=== PATIENT | female | born 1985 | race Caucasian/White ===

== ENCOUNTER 2018-03-27 21:00 | Inpatient (IN) | payer OTHER ==
[2018-03-28] MEDS ORDERED: Zolpidem Tartrate 5 MG TAB PO PRN ×2 (01:30→21:44)
[2018-03-28] MEDS ORDERED: Butorphanol Tartrate 1 MG/ML VIAL SLOW IVP PRN (01:30)
[2018-03-28] MEDS ORDERED: Docusate 100 MG CAP PO PRN (01:30)
[2018-03-28] MEDS ORDERED: Diphenoxylate HCl/Atropine Tablet PO PRN ×2 (01:30)
[2018-03-28] MEDS ORDERED: Misoprostol 200 MCG TAB PR PRN (01:30)
[2018-03-28] MEDS ORDERED: Lidocaine 1% (PF) 30 ML VIAL SC PRN (01:30)
[2018-03-28] MEDS ORDERED: HYDROcodone/Acetaminophen 5/325 mg Tablet PO PRN ×2 (01:30)
[2018-03-28] MEDS ORDERED: NS w/ Oxytocin 10 units 500 ML IV SCH (01:30)
[2018-03-28] MEDS ORDERED: Ibuprofen 800 MG TAB PO PRN (01:30)
[2018-03-28] MEDS ORDERED: Promethazine HCl 25 MG/ML VIAL IM PRN ×2 (01:30→11:21)
[2018-03-28] MEDS ORDERED: Misoprostol 100 MCG TAB VAG SCH (01:30)
[2018-03-28] MEDS ORDERED: Acetaminophen 500 MG TAB PO PRN (01:30)
[2018-03-28] MEDS ORDERED: NS / Oxytocin 40 units/1000ml 1,000 ML IV PRN (01:30)
[2018-03-28 02:08] VITALS: BMI 32.5
[2018-03-28] MEDS: Lactated Ringer's 1,000 ML IV SCH ×3 (02:20→15:47)
[2018-03-28] MEDS: Misoprostol 100 MCG TAB ONE ×2 (02:30→06:00)
[2018-03-28 02:48] LABS: Hemoglobin 13.2 g/dL (12.0-16.0); Mean Corpuscular Hemoglobin 31.4 pg (27.0-31.0); Mean Corpuscular Volume 89.6 fL (78.0-98.0); Mean Platelet Volume 8.3 fL (7.4-10.4); Platelet Count 170 thou/uL (130-400); RBC Distribution Width 12.7 % (11.5-14.5); Red Blood Cell (RBC) Count 4.22 mill/uL (4.20-5.40); White Blood Cell (WBC) Count 9.9 thou/uL (4.8-10.8)
[2018-03-28 03:27] LABS: Hep B Surf Ag Non-Reactive S/CO (NonReactive)
[2018-03-28 04:51] LABS: Syphilis Antibody Nonreactive (Nonreactive); Syphilis Antibody Index 0.04 S/CO (<1.00 Non-Reactive)
[2018-03-28] MEDS ORDERED: DISCONTINUE ALL PREVIOUS NARCOTICS FS SCH (10:30)
[2018-03-28] MEDS ORDERED: Bupivacaine 0.25% HCL 30 ML VIAL ONE (11:11)
[2018-03-28] MEDS ORDERED: Naloxone HCl 0.4 mg/ml Vial IVP PRN ×2 (11:21)
[2018-03-28] MEDS ORDERED: Ondansetron HCl/PF 4 MG/2 ML Vial IVP PRN ×2 (11:21→21:44)
[2018-03-28] MEDS ORDERED: Acetaminophen 325 MG TAB PO PRN (11:21)
[2018-03-28] MEDS ORDERED: Eucerin (Mineral Oil/Petrolatum,White) 30 gm Jar TOP PRN (11:21)
[2018-03-28] MEDS ORDERED: diphenhydrAMINE 50 MG/ML VIAL IVP PRN (11:21)
[2018-03-28] MEDS ORDERED: ePHEDrine/0.9% NaCl/PF SYRINGE 50 mg/10 ml SLOW IVP PRN (11:21)
[2018-03-28] MEDS ORDERED: Lactated Ringer's 500 ML IV PRN (11:21)
[2018-03-28] MEDS ORDERED: fentaNYL Citrate/PF 400 MCG, Bupivacaine 0.5% 20 ML in Sodium Chloride 0.9% 72 ML EPIDURAL SCH (11:30)
[2018-03-28] MEDS: Bupivacaine 0.5% 20 ML, fentaNYL Citrate/PF 400 MCG in Sodium Chloride 0.9% 72 ML EPIDURAL SCH ×2 (11:30→17:58)
[2018-03-28] MEDS ORDERED: Communication Order-Pharmacy FS SCH (11:30)
[2018-03-28] MEDS: Ondansetron HCl/PF 4 MG/2 ML Vial IVP PRN ×2 (11:40→17:06)
[2018-03-28] MEDS ORDERED: Acetaminophen/Codeine 30-300mg Tablet PO PRN ×2 (21:44)
[2018-03-28] MEDS ORDERED: Preparation H Ointment 28 GM TUBE PR PRN (21:44)
[2018-03-28] MEDS ORDERED: Lanolin Ointment 7 GM TUBE TOP PRN (21:44)
[2018-03-28] MEDS ORDERED: diphenhydrAMINE 25 MG CAP PO PRN (21:44)
[2018-03-28] MEDS ORDERED: Adacel (T-DAP) 0.5 ML VIAL IM ONE (21:44)
[2018-03-28] MEDS ORDERED: Benzocaine/Menthol 20-0.5% 60 ML CAN TOP PRN (21:44)
[2018-03-28] MEDS ORDERED: Bisacodyl 10 MG SUPP PR PRN (21:44)
[2018-03-28] MEDS ORDERED: Milk Of Magnesia 30 ML UDCUP PO PRN (21:44)
[2018-03-28] MEDS ORDERED: NS / Oxytocin 40 units/1000ml 1,000 ML IV SCH (21:45)
[2018-03-28] MEDS: Ibuprofen 800 MG TAB PO SCH (22:31)
[2018-03-29] MEDS: Ibuprofen 800 MG TAB PO SCH ×3 (06:06→22:01)
[2018-03-29] MEDS: Docusate Calcium (SURFAK) 240 MG CAP PO SCH ×2 (09:27→22:01)
[2018-03-29] MEDS: Prenatal Vitamin 1 TAB PO SCH (09:27)
[2018-03-29] MEDS: Ferrous Sulfate 325 MG TAB PO SCH ×2 (09:28→18:50)
[2018-03-30] MEDS ORDERED: Levothyroxine Sodium 25 MCG TAB PO SCH (06:00)
[2018-03-30] MEDS: Ibuprofen 800 MG TAB PO SCH ×2 (06:13→13:55)
[2018-03-30] MEDS: Docusate Calcium (SURFAK) 240 MG CAP PO SCH (09:14)
[2018-03-30] MEDS: Prenatal Vitamin 1 TAB PO SCH (09:14)
[2018-03-30] MEDS: Ferrous Sulfate 325 MG TAB PO SCH ×2 (09:15→13:22)
[2018-03-30 09:42] VITALS: BP 114/59; TEMP 98.5
== END 2018-03-30 14:45 | disposition home or self-care (01) | DRG 774 ==
LOC: L&D 03-28 01:12 → 3SW 03-28 23:51
PROVIDERS: ADMIT Obstetrics & Gynecology; ATTEND Obstetrics & Gynecology
PROC: 10E0XZZ Delivery of Products of Conception, External Approach (ICD-10-PCS; principal; 2018-03-28)
PROC: 0W8NXZZ Division of Female Perineum, External Approach (ICD-10-PCS; 2018-03-28)
PROC: 3E033VJ Introduction of Other Hormone into Peripheral Vein, Percutaneous Approach (ICD-10-PCS; 2018-03-28)
PROC: 10907ZC Drainage of Amniotic Fluid, Therapeutic from Products of Conception, Via Natural or Artificial Opening (ICD-10-PCS; 2018-03-28)
DX: O77.0 Labor and delivery complicated by meconium in amniotic fluid (principal); O99.42 Diseases of the circulatory system complicating childbirth; Z3A.39 39 weeks gestation of pregnancy; Z37.0 Single live birth
CPT/HCPCS: 51702; 85027; 86780; 86850; 86900; 86901; 87340; J2001; J2405; J3010; J3490; J7050; S0020

== ENCOUNTER 2019-11-05 19:15 | Inpatient (IN) | payer OTHER ==
[~2019-11-05 19:15] MED LIST: Bupivacaine 0.25% HCL 30 ML VIAL ONE
[2019-11-05] MEDS ORDERED: Promethazine HCl 25 MG/ML VIAL IM PRN (20:47)
[2019-11-05] MEDS ORDERED: NS w/ Oxytocin 10 units 500 ML IV SCH (20:47)
[2019-11-05] MEDS ORDERED: Butorphanol Tartrate 1 MG/ML VIAL SLOW IVP PRN (20:47)
[2019-11-05] MEDS ORDERED: Acetaminophen 500 MG TAB PO PRN (20:47)
[2019-11-05] MEDS ORDERED: hydrALAZINE 20 MG/ML VIAL SLOW IVP PRN (20:47)
[2019-11-05] MEDS ORDERED: Ondansetron PF 4 MG/2 ML Vial IVP PRN (20:47)
[2019-11-05] MEDS ORDERED: Diphenoxylate HCl/Atropine Tablet PO PRN ×2 (20:47)
[2019-11-05] MEDS ORDERED: HYDROcodone/Acetaminophen 5/325 mg Tablet PO PRN (20:47)
[2019-11-05] MEDS ORDERED: NS / Oxytocin 40 units/1000ml 1,000 ML IV PRN (20:47)
[2019-11-05] MEDS ORDERED: Carboprost 250 MCG/ML AMP IM PRN (20:47)
[2019-11-05] MEDS ORDERED: Lidocaine 1% (PF) 30 ML VIAL SC PRN (20:47)
[2019-11-05] MEDS ORDERED: Ibuprofen 800 MG TAB PO PRN (20:47)
[2019-11-05] MEDS ORDERED: Misoprostol 200 MCG TAB PR PRN (20:47)
[2019-11-05 21:00] LABS: Hemoglobin 13.4 g/dL (12.0-16.0); Mean Corpuscular HGB CONC 34.4 g/dL (32.0-36.0); Mean Corpuscular Hemoglobin 31.2 pg (27.0-31.0); Mean Corpuscular Volume 90.7 fL (78.0-98.0); Mean Platelet Volume 8.1 fL (7.4-10.4); Platelet Count 175 thou/uL (130-400); RBC Distribution Width 12.6 % (11.5-14.5); Red Blood Cell (RBC) Count 4.31 mill/uL (4.20-5.40); White Blood Cell (WBC) Count 10.4 thou/uL (4.8-10.8)
[2019-11-05] MEDS ORDERED: Penicillin G Potassium 5 MILL.UNITS in Sodium Chloride 0.9% 100 ML IVPB SCH (21:00)
[2019-11-05 21:39] LABS: Syphilis Antibody Nonreactive (Nonreactive); Syphilis Antibody Index 0.04 S/CO (<1.00 Non-Reactive)
[2019-11-05 21:43] VITALS: BMI 34.9
[2019-11-05] MEDS: Misoprostol 100 MCG TAB VAG SCH (21:55)
[2019-11-05] MEDS: Lactated Ringer's 1,000 ML IV SCH (21:59)
[2019-11-05 22:28] LABS: Hep B Surf Ag Non-Reactive S/CO (NonReactive)
[2019-11-06] MEDS: Misoprostol 100 MCG TAB VAG SCH (01:44)
[2019-11-06] MEDS: Penicillin G 2.5 MILL.units 2.5 MILL.UNITS in Premix Bag 1 BAG IVPB SCH ×3 (03:59→12:01)
[2019-11-06] MEDS ORDERED: Fentanyl 4 mcg/Bup 0.1% Cadd 100 ML ONE ×2 (06:30→12:53)
[2019-11-06] MEDS: Lactated Ringer's 1,000 ML IV SCH ×2 (06:55→12:02)
[2019-11-06] MEDS ORDERED: Lactated Ringer's 500 ML IV PRN (07:23)
[2019-11-06] MEDS ORDERED: Ondansetron PF 4 MG/2 ML Vial IVP PRN (07:23)
[2019-11-06] MEDS ORDERED: Naloxone HCl 0.4 mg/ml Vial IVP PRN ×2 (07:23)
[2019-11-06] MEDS ORDERED: diphenhydrAMINE 50 MG/ML VIAL IVP PRN (07:23)
[2019-11-06] MEDS ORDERED: Promethazine HCl 25 MG/ML VIAL IM PRN (07:23)
[2019-11-06] MEDS ORDERED: Acetaminophen 325 MG TAB PO PRN (07:23)
[2019-11-06] MEDS ORDERED: EPHEDRINE 25 MG/5 ML SYRINGE SLOW IVP PRN (07:23)
[2019-11-06] MEDS ORDERED: Communication Order-Pharmacy FS SCH (07:30)
[2019-11-06] MEDS ORDERED: Fentanyl 4 mcg/Bupivacaine 0.1% Cassette 100 ML EPIDURAL SCH (07:30)
[2019-11-06] MEDS ORDERED: Lidocaine 1.5%/Epinephrine 1:200,000 5 ML AMPUL IJ ONE (13:09)
[2019-11-06] MEDS ORDERED: Lanolin Ointment 7 GM TUBE TOP PRN (15:45)
[2019-11-06] MEDS ORDERED: hydrALAZINE 20 MG/ML VIAL SLOW IVP PRN (15:45)
[2019-11-06] MEDS ORDERED: Milk Of Magnesia 30 ML UDCUP PO PRN (15:45)
[2019-11-06] MEDS ORDERED: NS / Oxytocin 40 units/1000ml 1,000 ML IV SCH (15:45)
[2019-11-06] MEDS ORDERED: Adacel (T-DAP) 0.5 ML SYRINGE IM ONE (15:45)
[2019-11-06] MEDS ORDERED: Bisacodyl 10 MG SUPP PR PRN (15:45)
[2019-11-06] MEDS ORDERED: Preparation H Ointment 28 GM TUBE PR PRN (15:45)
[2019-11-06] MEDS ORDERED: Benzocaine-Menthol 82.5 ML CAN TOP PRN (15:45)
[2019-11-06] MEDS ORDERED: diphenhydrAMINE 25 MG CAP PO PRN (15:45)
--- NOTE | 2019-11-06 15:48 | PDOC.OPDEL ---
OB Operative/Delivery Note Delivery Dr/Surgeon: Jaylin Pre-Delivery Diagnosis: elective induction Procedure/Post Delivery Dx: spontaneous vaginal delivery Weeks gestation: 39 Anesthesia: epidural - Additional Findings/Plan Placenta delivered: spontaneous Repaired Obstetrical Laceration: periurethral Estimated blood loss: 200 ml qbl Post delivery plan: routine recovery (nuchal cord x 1...cord blood collected for karyotype.)
[2019-11-06] MEDS: Docusate Calcium (SURFAK) 240 MG CAP PO SCH (22:04)
[2019-11-06] MEDS: Ibuprofen 800 MG TAB PO SCH (22:04)
[2019-11-07] MEDS: Ibuprofen 800 MG TAB PO SCH ×2 (05:34→13:50)
--- NOTE | 2019-11-07 05:43 | PDOC.PP ---
Post Progress Note Post Day #: PPD1 Subjective: Resting, no c/o. PO intake tolerated: yes Flatus: yes Ambulation: yes Vital Signs (12 hours) Temp Pulse Resp BP Pulse Ox 11/07/19 00:10 98.6 F 77 17 110/55 L 11/06/19 20:30 98.2 F 89 17 110/62 99 Weight Weight 86.636 kg - Physical Examination General: NAD Respiratory: non-labored breathing Neurological: no gross focal deficits Psychiatric: normal affect Result Diagrams: 11/05/19 20:48 Additional Labs: Post Labs Blood Type O POSITIVE 11/05/19 20:48 Hep Bs Antigen Non-Reactive S/CO (NonReactive) 11/05/19 20:47 - Assessment/Plan Doing well s/p Routine PP long-term late today vs. AM 11/07
[2019-11-07] MEDS ORDERED: Levothyroxine Sodium 50 MCG TAB PO SCH (06:00)
[2019-11-07] MEDS: Ferrous Sulfate 325 MG TAB PO SCH ×2 (08:01→14:47)
[2019-11-07] MEDS: Misoprostol 100 MCG TAB VAG SCH ×2 (08:03→08:04)
[2019-11-07] MEDS: Penicillin G 2.5 MILL.units 2.5 MILL.UNITS in Premix Bag 1 BAG IVPB SCH (08:04)
[2019-11-07] MEDS ORDERED: Prenatal Vitamin 1 TAB PO SCH (09:00)
[2019-11-07] MEDS: Docusate Calcium (SURFAK) 240 MG CAP PO SCH (09:09)
[2019-11-07 09:39] VITALS: BP 115/57; TEMP 98.4
[2019-11-07] MEDS: traMADol HCl 50 MG TAB PO PRN ×2 (10:41→16:15)
[2019-11-07] MEDS ORDERED: Witch Hazel-Glycerin 1 EACH JAR TOP PRN (17:11)
== END 2019-11-07 17:20 | disposition home or self-care (01) | DRG 807 ==
LOC: L&D 20:42 → 3SW 11-06 20:56
PROVIDERS: ADMIT Obstetrics & Gynecology; ATTEND Obstetrics & Gynecology
PROC: 0W8NXZZ Division of Female Perineum, External Approach (ICD-10-PCS; principal; 2019-11-05)
PROC: 10E0XZZ Delivery of Products of Conception, External Approach (ICD-10-PCS; 2019-11-05)
DX: O99.824 Streptococcus B carrier state complicating childbirth (principal); Z37.0 Single live birth; Z3A.39 39 weeks gestation of pregnancy; O70.9 Perineal laceration during delivery, unspecified; O69.81X0 Labor and delivery complicated by cord around neck, without compression, not applicable or unspecified
CPT/HCPCS: 51702; 85027; 86780; 86850; 86900; 86901; 87340; J2001; J2405; J2540; J2550; J2590; J3490; S0020